=== PATIENT | male | born 1975 | race Caucasian/White ===

== ENCOUNTER 2020-07-02 14:04 | Emergency (ER) | payer BC ==
[~2020-07-02] VITALS: Ht 180.3 cm; Wt 101.2 kg
[2020-07-02 14:05] VITALS: BP_SYST 129
[2020-07-02] MEDS ORDERED: CYCLOBENZAPRINE HCL 10 MG TABLET (FLEXERIL) PO ONE (14:45)
[2020-07-02] MEDS ORDERED: MORPHINE 4 MG/ML INJ. SYRINGE IVP ONE (14:45)
[2020-07-02 17:11] VITALS: BP_SYST 121
== END 2020-07-02 17:07 | disposition home or self-care (01) ==
LOC: SED 14:04
DX: M54.40 Lumbago with sciatica, unspecified side (principal)
CPT/HCPCS: 96372; 99283; J2270